=== PATIENT | male | born 1930 | race Asian ===

== ENCOUNTER → 2018-05-18 | Outpatient (CLI) | payer MEDICARE, OTHER ==
[~2018-05-18] MED LIST: ACET-66 PO; CALC1TAB PO; DUTA.5 PO; MULT-1259 PO; SIMV20TA6 PO; TAMS0.4C32 PO; TIOT185 IH
== END | disposition home or self-care (01) ==
LOC: RADPV 13:44
PROVIDERS: ATTEND Internal Medicine
DX: J44.9 Chronic obstructive pulmonary disease, unspecified (principal)